=== PATIENT | female | born 1970 | race American Indian/Alaskan Native ===

== ENCOUNTER 2017-11-18 12:16 | Emergency (ER) | payer OTHER ==
[2017-11-18 12:16] VITALS: BMI 25.8
[2017-11-18 12:24] VITALS: TEMP 98.1
[2017-11-18] MEDS ORDERED: Sodium Chloride 0.9% 1,000 ML IV STA (13:02)
[2017-11-18 13:47] LABS: BASO # 0.1 K/uL (0.0-0.2); BASO % 0.6 % (0.0-2.0); EOS # 0.1 K/uL (0.0-0.7); HEMOGLOBIN 12.2 g/dL (12.0-16.0); LYMPH % 24.1 % (20.0-40.0); MEAN CELL VOLUME 88.4 fl (81.0-99.0); MEAN CORPUSCULAR HGB CONC 32.8 g/dL (33.0-37.0); MEAN PLATELET VOLUME 11.8 fl (7.2-11.7); MONO # 0.5 K/uL (0.0-0.8); MONO % 5.7 % (0.0-10.0); NEUT # 5.6 K/uL (1.8-7.0); NEUT % 68.6 % (50.0-75.0); NRBC % 0.1 % (0.0-0.0); RBC 4.22 Mil/uL (3.80-5.20); RED CELL DISTRIBUTION WIDTH 14.3 % (11.5-14.5); WHITE BLOOD COUNT 8.2 K/uL (4.8-10.8)
--- NOTE | 2017-11-18 14:04 | ED PDOC ---
HPI: Female Pain Time Seen by Provider: 11/18/17 12:51 Chief Complaint (Nursing): Female Genitourinary Chief Complaint (Provider): VAGINAL BLEEDING History Per: Patient (47 Y/O FEMALE H/O DYSFUNCTIONAL UTERINE BLEEDING HERE FOR VAGINAL BLEEDING X 3 WEEKS. PATIENT STATES SHE HAS HAD ED VISIT LAST YEAR WITH [facility] AT THAT TIME. HAD APPT WITH DR. ROCA BUT DID NOT F/U BLEEDING STOPPED. ) Past Medical History Reviewed: Historical Data, Nursing Documentation, Vital Signs Vital Signs: Last Vital Signs Temp 98.1 F 11/18/17 12:21 Pulse 101 H 11/18/17 12:21 Resp BP 177/102 H 11/18/17 12:21 Pulse Ox 97 11/18/17 12:21 - Surgical History Surgical History: Appendectomy - Family History Family History: States: Unknown Family Hx - Immunization History Hx Tetanus Toxoid Vaccination: No Hx Influenza Vaccination: No Hx Pneumococcal Vaccination: No - Home Medications Home Medications: Ambulatory Orders Medication Instructions Recorded No Known Home Med 07/02/16 - Allergies Allergies/Adverse Reactions: Allergies Allergy/AdvReac Type Severity Reaction Status Date / Time No Known Allergies Allergy Verified 01/16/16 11:30 Review of Systems ROS Statement: Except As Marked, All Systems Reviewed And Found Negative Physical Exam - Reviewed Nursing Documentation Reviewed: Yes Vital Signs Reviewed: Yes - Physical Exam Appears: Positive for: Well, Non-toxic, No Acute Distress Head Exam: Positive for: ATRAUMATIC, NORMAL INSPECTION, NORMOCEPHALIC Skin: Positive for: Normal Color, Warm, DRY Eye Exam: Positive for: EOMI, Normal appearance, PERRL ENT: Positive for: Normal ENT Inspection Neck: Positive for: Normal, Painless ROM Cardiovascular/Chest: Positive for: Regular Rate, Rhythm Respiratory: Positive for: CNT, Normal Breath Sounds Gastrointestinal/Abdominal: Positive for: Normal Exam, Soft Pelvic Exam: Negative for: Active Bleeding (NO ACTIVE BLEEDING NOTED. ) Back: Positive for: Normal Inspection Extremity: Positive for: Normal ROM Neurologic/Psych: Positive for: Alert, Oriented - Laboratory Results Result Diagrams: 11/18/17 13:28 Urine POC: Negative - ECG O2 Sat by Pulse Oximetry: 97 Disposition - Clinical Impression Clinical Impression: Vaginal bleeding, Hypertension - Patient ED Disposition Is Patient to be Admitted: No - Disposition Referrals: [facility] [Outside] [facility] [Outside] Disposition: Routine/Home Disposition Time: 14:05 Condition: FAIR Instructions: High Blood Pressure in Adults, DASH Diet, Heavy Periods (DC)
[2017-11-18 14:55] VITALS: BP 150/86; PULSE 88; RESP 16; O2SAT 99
== END 2017-11-18 15:02 | disposition home or self-care (01) ==
LOC: H.ER 12:16
DX: N93.8 Other specified abnormal uterine and vaginal bleeding (principal); I10 Essential (primary) hypertension
CPT/HCPCS: 81025; 85025; 99284; J7030